=== PATIENT | male | born 1965 ===

== ENCOUNTER 2024-11-19 06:12 | Day surgery (SDC) | payer BC, SELFPAY | END 2024-11-19 08:37 | disposition home or self-care (01) | LOC: GI 06:12 | PROVIDERS: ATTENDING PHYSICIAN Specialist | DX: Z12.11 Encounter for screening for malignant neoplasm of colon (principal); D12.5 Benign neoplasm of sigmoid colon; K57.30 Diverticulosis of large intestine without perforation or abscess without bleeding; K62.1 Rectal polyp | CPT/HCPCS: 45380; 88305 ==